=== PATIENT | male | born 1990 | race African-American/Black ===

== ENCOUNTER 2021-06-07 23:54 | Observation (INO) | payer MEDICARE, OTHER ==
--- NOTE | 2021-06-08 00:49 | ED ---
General Adult HPI - General Stated complaint: Fall, low blood sugar Time Seen by Provider: 06/08/21 00:44 - History of Present Illness Initial comments: 31 year-old male patient presents to the emergency department after experiencing a fall. States he believes he passed out. States that his legs felt very "wiggly", it felt like the right leg was asleep. States when he got up to walk he fell. Medical at the halfway saw him and states that blood sugar was low at 50 and BP was low. They did give snacks and juice. Repeat blood sugar was 86. Did start some new medications recently. Denies hitting his head. States he did hit his right knee. Denies history of issues with low blood sugar. Denies any fever or chills. Denies any recent illness. - Related Data Allergies Allergy/AdvReac Type Severity Reaction Status Date / Time No Known Allergies Allergy Verified 06/08/21 00:48 Review of Systems ROS Statement: Those systems with pertinent positive or pertinent negative responses have been documented in the HPI. ROS Other: All systems not noted in ROS Statement are negative. General Exam General appearance: alert, in no apparent distress, other (This is a well- developed, well-nourished adult male in no acute distress.) Eye exam: Present: normal appearance, PERRL, EOMI. Absent: scleral icterus, conjunctival injection, periorbital swelling ENT exam: Present: normal exam, normal oropharynx, mucous membranes moist Respiratory exam: Present: normal lung sounds bilaterally. Absent: respiratory distress, wheezes, rales, rhonchi, stridor Cardiovascular Exam: Present: regular rate, normal rhythm, normal heart sounds. Absent: systolic murmur, diastolic murmur, rubs, gallop, clicks GI/Abdominal exam: Present: soft, normal bowel sounds. Absent: distended, tenderness, guarding, rebound, rigid Extremities exam: Present: full ROM, normal capillary refill, other (No bony tenderness over the right knee. No swelling or ecchymosis. Skin is warm and dry. Cap refill less than 3 seconds. Pedal and posttibial pulses 2+.). Absent: normal inspection, tenderness, pedal edema, joint swelling, calf tenderness Neurological exam: Present: alert, oriented X3, CN II-XII intact Psychiatric exam: Present: normal affect, normal mood Skin exam: Present: warm, dry, intact, normal color. Absent: rash Course Vital Signs 06/08/21 00:44 Temperature 98.5 F Pulse Rate 60 Respiratory 18 Rate Blood Pressure 150/93 O2 Sat by Pulse 100 Oximetry EKG Findings - EKG Comments: EKG Findings:: AG obtained at 0100 shows sinus bradycardia with a ventricular rate of 55, TN interval 150, QRS duration 94, QTC 418, QTC 399. No evidence of ST elevation or depression. Medical Decision Making - Medical Decision Making 31 year-old male patient, currently incarcerated presented for syncopal episode. He was found to have low blood sugar at 50. He was given snack bag with crackers, peanut butter, and juice. He was also given oral glucose. Blood sugar on arrival was 86. Patient was asymptomatic at that time. Labs reviewed and were unremarkable. Plan was to discharge, patient repeat blood sugar 58. He was given juice and pudding. Patient was recently started on new medications including abilify and trileptal, both have rare adverse reaction of hypoglycemia, this is possibly a contributing factor as patient does not have diabetes. He will be admitted for observation for close monitoring of his blood glucose. Officers present at bedside are agreeable with this plan. My attending is Dr. Ghosh. - Lab Data Result diagrams: 06/08/21 01:32 06/08/21 01:32 Lab Results 06/08/21 06/08/21 06/08/21 Range/Units 00:49 01:32 01:32 WBC 4.3 (3.8-10.6) k/uL RBC 4.33 (4.30-5.90) m/uL Hgb 13.6 (13.0-17.5) gm/dL Hct 39.5 (39.0-53.0) % MCV 91.2 (80.0-100.0) fL MCH 31.3 (25.0-35.0) pg MCHC 34.3 (31.0-37.0) g/dL RDW 12.4 (11.5-15.5) % Plt Count 231 (150-450) k/uL MPV 8.1 Neutrophils % 48 % Lymphocytes % 39 % Monocytes % 6 % Eosinophils % 5 % Basophils % 1 % Neutrophils # 2.1 (1.3-7.7) k/uL Lymphocytes # 1.7 (1.0-4.8) k/uL Monocytes # 0.2 (0-1.0) k/uL Eosinophils # 0.2 (0-0.7) k/uL Basophils # 0.0 (0-0.2) k/uL Sodium 136 L (137-145) mmol/L Potassium 3.9 (3.5-5.1) mmol/L Chloride 97 L (98-107) mmol/L Carbon Dioxide 27 (22-30) mmol/L Anion Gap 12 mmol/L BUN 9 (9-20) mg/dL Creatinine 0.93 (0.66-1.25) mg/dL Est GFR (CKD-EPI)AfAm >90 (>60 ml/min/1.73 sqM) Est GFR (CKD-EPI)NonAf >90 (>60 ml/min/1.73 sqM) Glucose 88 (74-99) mg/dL POC Glucose (mg/dL) 89 (75-99) mg/dL POC Glu Ship Keeper ID Fredis Diana Calcium 9.7 (8.4-10.2) mg/dL Total Bilirubin 0.5 (0.2-1.3) mg/dL AST 43 (17-59) U/L ALT 45 (4-49) U/L Alkaline Phosphatase 55 (38-126) U/L Total Protein 7.6 (6.3-8.2) g/dL Albumin 4.4 (3.5-5.0) g/dL 06/08/21 Range/Units 02:37 WBC (3.8-10.6) k/uL RBC (4.30-5.90) m/uL Hgb (13.0-17.5) gm/dL Hct (39.0-53.0) % MCV (80.0-100.0) fL MCH (25.0-35.0) pg MCHC (31.0-37.0) g/dL RDW (11.5-15.5) % Plt Count (150-450) k/uL MPV Neutrophils % % Lymphocytes % % Monocytes % % Eosinophils % % Basophils % % Neutrophils # (1.3-7.7) k/uL Lymphocytes # (1.0-4.8) k/uL Monocytes # (0-1.0) k/uL Eosinophils # (0-0.7) k/uL Basophils # (0-0.2) k/uL Sodium (137-145) mmol/L Potassium (3.5-5.1) mmol/L Chloride (98-107) mmol/L Carbon Dioxide (22-30) mmol/L Anion Gap mmol/L BUN (9-20) mg/dL Creatinine (0.66-1.25) mg/dL Est GFR (CKD-EPI)AfAm (>60 ml/min/1.73 sqM) Est GFR (CKD-EPI)NonAf (>60 ml/min/1.73 sqM) Glucose (74-99) mg/dL POC Glucose (mg/dL) 58 L (75-99) mg/dL POC Glu Ship Keeper ID Nathan Quezada Calcium (8.4-10.2) mg/dL Total Bilirubin (0.2-1.3) mg/dL AST (17-59) U/L ALT (4-49) U/L Alkaline Phosphatase (38-126) U/L Total Protein (6.3-8.2) g/dL Albumin (3.5-5.0) g/dL Disposition Clinical Impression: Hypoglycemia, Fall Disposition: [facility] Condition: Serious Referrals: None,Stated [Primary Care Provider] - 1-2 days Decision to Admit Reason: Admit from EC Decision Date: 06/08/21 Decision Time: 02:51
[2021-06-08 00:50] LABS: Glucose,Whole Blood 89 mg/dL (75-99)
[2021-06-08 01:40] LABS: Basophils % (A) 1 %; Eosinophils # (A) 0.2 k/uL (0-0.7); Eosinophils % (A) 5 %; HCT 39.5 % (39.0-53.0); HGB 13.6 gm/dL (13.0-17.5); Lymphocytes # (A) 1.7 k/uL (1.0-4.8); Lymphocytes % (A) 39 %; MCH 31.3 pg (25.0-35.0); MCHC 34.3 g/dL (31.0-37.0); MCV 91.2 fL (80.0-100.0); Mean Platelet Volume 8.1; Monocytes # (A) 0.2 k/uL (0-1.0); Monocytes % (A) 6 %; Neutrophils # (A) 2.1 k/uL (1.3-7.7); Neutrophils % (A) 48 %; Platelet Count 231 k/uL (150-450); RBC 4.33 m/uL (4.30-5.90); RDW 12.4 % (11.5-15.5); WBC 4.3 k/uL (3.8-10.6)
[2021-06-08 02:10] LABS: ALT 45 U/L (4-49); AST 43 U/L (17-59); African American GFR (CKD) >90 (>60 ml/min/1.73 sqM); Albumin 4.4 g/dL (3.5-5.0); Alkaline Phosphatase 55 U/L (38-126); Blood Urea Nitrogen 9 mg/dL (9-20); Calcium 9.7 mg/dL (8.4-10.2); Carbon Dioxide 27 mmol/L (22-30); Glucose 88 mg/dL (74-99); Non-African American GFR(CKD) >90 (>60 ml/min/1.73 sqM); Total Bilirubin 0.5 mg/dL (0.2-1.3); Total Protein 7.6 g/dL (6.3-8.2)
[2021-06-08 02:27] LABS: Anion Gap 12 mmol/L; Chloride 97 mmol/L (98-107); Potassium 3.9 mmol/L (3.5-5.1); Sodium 136 mmol/L (137-145)
[2021-06-08 02:38] LABS: Glucose,Whole Blood 58 mg/dL (75-99)
[2021-06-08] MEDS ORDERED: NALOXONE 0.4 MG/ML 1 ML VIAL IV PRN (02:59)
[2021-06-08 03:05] LABS: Glucose,Whole Blood 76 mg/dL (75-99)
--- NOTE | 2021-06-08 03:54 | CT ---
EXAMINATION TYPE: CT brain wo con DATE OF EXAM: 06/08/2021 COMPARISON: None HISTORY: Syncope; diplopia CT DLP: 1127.4 mGycm Automated exposure control for dose reduction was used. Images obtained of the brain without contrast. Ventricles have normal size. There is no mass effect nor midline shift. There is no sign of intracran ial hemorrhage. Calvarium is intact. There is normal aeration of the mastoid sinuses. IMPRESSION: Negative unenhanced head CT scan.
--- NOTE | 2021-06-08 04:11 | P.HPIM ---
History of Present Illness H&P Date: 06/08/21 Patient is a 31-year-old male, currently incarcerated at [facility] who was brought in the emergency room after lightheadedness and fall. The history was supplemented by the witness, an officer from the [employer]. The patient reports that he was in his usual state of health and was performing some regular duties at the [employer] when he suddenly felt off balance. He denied experiencing dizziness but stated that he was unable to stand. He was able to stop himself from falling initially, was subsequently fell again when his legs gave out a minute later, at which time the officers were able to hold them up. They then helped the patient onto his bed, where the patient attempted to get up and then lost his balance and fell again. The patient reports not hitting his head. They checked his vitals and blood sugar which was 50, with BP being low although not documented. The gave the patient some juice and snacks and recheck the blood sugar which was then 86. They then decided to bring the patient to the emergency room. While in the emergency room, upon arrival the patient's blood g lucose was 89 with subsequent dropped to 58. Patient denied any prior history of hypoglycemia. The patient was reportedly started on new medications yesterday. The patient also reported having long-standing strabismus but states that he began experiencing diplopia for the first time after coming to the emergency room. He denied experiencing eye pain, head trauma or headache at the time of interview. Also denied weakness, numbness, tingling. Denied neck pain. Further denied recent change in apetite, weight loss, chest discomfort, shortness of breath or fever, chills, cough, nausea, vomiting, abdominal pain, diarrhea. CT brain in the emergency room was unremarkable. EKG revealed sinus bradycardia at [address]/T-wave changes noted as reviewed by me. Review of systems: Pertinent positives and negatives as discussed in HPI, a complete review of systems was performed and all other systems are negative. Physical examination: General: non toxic, no distress, appears at stated age, normal weight Derm: no unusual rashes/lesions no unusual ecchymoses, warm, dry Head: atraumatic, normocephalic, symmetric Eyes: Strabismus noted, EOMI, no lid lag, anicteric sclera, pupils equal round reactive to light ENT: Nose and ears atraumatic, no thrush, no pharyngeal erythema Neck: No thyromegaly, no cervical lymphadenopathy, trachea midline, supple Mouth: no lip lesion, mucus membranes moist Cardiovascular: S1S2 reg, no murmur, positive posterior tibial pulse bilateral, no edema, capillary refill less than 2 seconds Lungs: CTA bilateral, no rhonchi, no rales , no accessory muscle use Abdominal: soft, nontender to palpation, no guarding, no appreciable organomegaly, normal bowel sounds Ext: no gross muscle atrophy, muscle strength 5 out of 5 in all 4 extremities grossly, no contractures, Neuro: CN II-XI grossly intact, light touch intact all 4 extremities, finger to nose within normal limits, Psych: Alert, oriented, appropriate affect Assessment/plan Recurrent hypoglycemia, unclear etiology -Encourage oral intake -IV fluids -Q2h accuchecks -Check insulin levels New onset diplopia with hx of strabismus -Neurology consult -Neurochecks DVT prophylaxis -Heparin subq The patient is admitted with an anticipated less than 2 midnight stay for evaluation of hypoglycemia CODE STATUS: Full Code Discussed with: Patient Anticipated discharge date: in am Anticipated discharge place: [facility] Past Medical History Past Medical History: No Reported History History of Any Multi-Drug Resistant Organisms: None Reported Past Surgical History: No Surgical Hx Reported Smoking Status: Former smoker Medications and Allergies Allergies Allergy/AdvReac Type Severity Reaction Status Date / Time No Known Allergies Allergy Verified 06/08/21 00:48 Physical Exam Vitals: Vital Signs Temp Pulse Resp BP Pulse Ox 06/08/21 00:44 98.5 F 60 18 150/93 100 Intake and Output 06/07/21 06/07/21 06/08/21 14:59 22:59 06:59 Other: Weight 81.647 kg Results CBC & Chem 7: 06/08/21 01:32 06/08/21 01:32 Labs: Abnormal Lab Results - Last 24 Hours (Table) 06/08/21 06/08/21 Range/Units 01:32 02:37 Sodium 136 L (137-145) mmol/L Chloride 97 L (98-107) mmol/L POC Glucose (mg/dL) 58 L (75-99) mg/dL
[2021-06-08 04:14] LABS: Glucose,Whole Blood 100 mg/dL (75-99)
[2021-06-08 06:03] LABS: Appearance,Urine Clear (Clear); Bilirubin,Urine Negative (Negative); Blood,Urine Negative (Negative); Color,Urine Light Yellow; Glucose,Urine (UA) Negative (Negative); Ketones,Urine Negative (Negative); Leukocyte Esterase,Urine Negative (Negative); Nitrite,Urine Negative (Negative); PH, Urine 6.5 (5.0-8.0); Protein,Urine Negative (Negative); Specific Gravity,Urine 1.006 (1.001-1.035); Urobilinogen,Urine <2.0 mg/dL (<2.0)
[2021-06-08 06:12] LABS: Glucose,Whole Blood 88 mg/dL (75-99)
[2021-06-08 08:03] LABS: Glucose,Whole Blood 108 mg/dL (75-99)
[2021-06-08] MEDS: HEPARIN SODIUM,PORCINE/PF 5,000 UNIT/0.5 ML SYRINGE SQ SCH ×3 (08:24→23:37)
--- NOTE | 2021-06-08 09:59 | P.CNNES ---
History of Present Illness Consult date: 06/08/21 Requesting physician: Kwasi Vigil Reason for Consult: diplopia History of Present Illness: This is a 31-year-old gentleman with medical history of old left eye injury who has strabismus, schizoprenia, bipolar, anxiety who presented to the emergency department on 06/07/2021 because of feeling of light-headedness and fall. Some of the history is obtained from medical record that. 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 His legs gave out and the patient fell. It seems that the patient attempted to get up again and he was off balance and fell again. He denies hitting his head that. His sugar was 50 the patient was given some juice snacks and his sugar was 86. The primary team felt the patient has new onset diplopia with history of strabismus. Patient stated that he had diplopia over the right eye and it was [id number] and he said it lasted a few hours and resolved. He denies any associated weakness, numbness, difficulty getting his words out, any difficulty swallowing. He denies of any headaches, nausea or vomiting. He is unsure why he has hypoglycemia recently. He denies any history of diabetes, hypertension. He denies any history of stroke, TIA. He is on home medication of Trileptal 300 mg daily, hydralazine, Abilify Some of the work-up in the hospital consisted of: Initial vital signs his blood pressure 150/93, heart rate of 60, respiratory of 18, temperature of 98.5 Fahrenheit oral and pulse ox of 100% room air. CBC with differential is unremarkable Patient sugar in the hospital was as low as 58. Sodium is 136, creatinine 0.93, calcium is 9.7, AST of 43, ALT 45. Urinalysis is negative for urinary tract infection. Coronavirus PCR is not detected. CT of the head is reported as negative on has had computed tomography scan. I personally reviewed that CAT scan of the head and there is no acute or subacute ischemia and there is no parenchymal hemorrhage. Review of Systems Review of system: The 12 point system was reviewed and apparent positive and negative per HPI. Past Medical History Past Medical History: No Reported History History of Any Multi-Drug Resistant Organisms: None Reported Past Surgical History: No Surgical Hx Reported Additional Past Surgical History / Comment(s): eye surgery Smoking Status: Former smoker Medications and Allergies Home Medications Medication Instructions Recorded Confirmed Type ARIPiprazole [Abilify] 10 mg PO DAILY 06/08/21 06/08/21 History OXcarbazepine [Trileptal] 300 mg PO DAILY 06/08/21 06/08/21 History hydrALAZINE HCL 50 mg PO BID 06/08/21 06/08/21 History Allergies Allergy/AdvReac Type Severity Reaction Status Date / Time No Known Allergies Allergy Verified 06/08/21 07:42 Physical Examination - Vital Signs Vital Signs: Vital Signs Temp Pulse Pulse Resp BP BP Pulse Ox 06/08/21 07:00 98.0 F 56 L 18 150/88 99 06/08/21 04:30 98.7 F 74 16 146/78 97 06/08/21 00:44 98.5 F 60 18 150/93 100 Intake and Output 06/07/21 06/08/21 06/08/21 22:59 06:59 14:59 Intake Total 550 Output Total 450 Balance 100 Intake: Oral 550 Output: Urine 450 Other: Voiding Method Urinal Weight 81.647 kg GENERAL: The patient is lying in bed and is not in acute distress. CHEST: The heart rate is regular rate rhythm. No murmurs to auscultation. No carotid bruit bilaterally. LUNG: Clear to auscultation bilaterally no wheezing noted throughout. Not labored breathing. ABDOMEN/GI: Bowel sounds present in all 4 quadrants. No tenderness to palpation throughout. NEUROLOGICAL: Higher mental function: The patient is awake, alert, oriented to self, place and time. Patient is following commands. No aphasia and no neglect. Cranial nerves: The pupils are round, equal and reactive to light and accommodation. Visual coyle are full to confrontation throughout. Primary gaze is right eye is center while left eye is slight lateral deviated. Extraocular movement is intact but there is nystagmus looking to left eye (horizontal). Facial sensation is normal to touch throughout. The facial strength is normal throughout. Hearing is normal bilaterally to hand rub. Tongue is midline and moved [id number] without any difficulty. No dysarthria is noted. Shoulder shrug is normal bilaterally. Motor: Gait is deferred. The strength is 5 over 5 throughout. Normal tone and bulk. Cerebellum: Normal finger to nose heel to banks bilaterally. Sensation: Sensation is normal to touch throughout. Reflexes (right/left): 2+ throughout. Plantars are downgoing bilaterally. Results - Laboratory Findings CBC and BMP: 06/08/21 01:32 06/08/21 01:32 Abnormal Lab Findings: Abnormal Labs 06/08/21 06/08/21 06/08/21 01:32 02:37 04:12 Sodium 136 L Chloride 97 L POC Glucose (mg/dL) 58 L 100 H 06/08/21 08:01 Sodium Chloride POC Glucose (mg/dL) 108 H Assessment and Plan Assessment: Diplopia over the right likely due to a hypoglycemic event---resolved Hypoglycemia as low as in the 50s: Unsure cause History of old left eye injury with strabismus (he stated he had trauma possibly when he was 5 years old) Schizophrenia Bipolar Anxiety Plan: I'll hold off on any further imaging or workup since the patient symptoms res olved and seems due to hypoglycemia Recommend patient to follow-up with Ophthamologist as outpatient. Every 4 hours neuro checks We'll defer the rest of medical management to the primary team These avoid any further hypoglycemia event and we'll defer the management to the primary team. The plan is discussed with the patient and his nurse. Thank you for the consultation. Boaz Cadet MD Neuro-Hospitalist Time with Patient: Greater than 30
[2021-06-08 10:09] LABS: Glucose,Whole Blood 97 mg/dL (75-99)
[2021-06-08 11:46] VITALS: BMI 23.7
[2021-06-08 12:01] LABS: Glucose,Whole Blood 87 mg/dL (75-99)
[2021-06-08 12:42] LABS: Glucose,Whole Blood 92 mg/dL (75-99)
[2021-06-08 14:24] LABS: Glucose,Whole Blood 113 mg/dL (75-99)
[2021-06-08 17:17] LABS: Glucose,Whole Blood 92 mg/dL (75-99)
[2021-06-08 17:33] LABS: Glucose,Whole Blood 84 mg/dL (75-99)
[2021-06-08 17:44] LABS: Glucose,Whole Blood 102 mg/dL (75-99)
[2021-06-08 20:25] LABS: Glucose,Whole Blood 109 mg/dL (75-99)
[2021-06-08 21:15] VITALS: TEMP 98.3
[2021-06-08 22:22] LABS: Glucose,Whole Blood 101 mg/dL (75-99)
[2021-06-08 23:39] LABS: Glucose,Whole Blood 96 mg/dL (75-99)
[2021-06-09 01:39] LABS: Glucose,Whole Blood 102 mg/dL (75-99)
[2021-06-09 02:30] VITALS: BP 124/83; PULSE 58; RESP 18
[2021-06-09 04:50] LABS: Glucose,Whole Blood 94 mg/dL (75-99)
[2021-06-09 05:28] LABS: Glucose,Whole Blood 157 mg/dL (75-99)
[2021-06-09] MEDS: HEPARIN SODIUM,PORCINE/PF 5,000 UNIT/0.5 ML SYRINGE SQ SCH (07:59)
[2021-06-09 08:08] LABS: Glucose,Whole Blood 86 mg/dL (75-99)
[2021-06-09 10:13] LABS: Glucose,Whole Blood 86 mg/dL (75-99)
[2021-06-09 12:05] LABS: Glucose,Whole Blood 94 mg/dL (75-99)
--- NOTE | 2021-06-09 12:21 | P.PN ---
Subjective Progress Note Date: 06/09/21 The patient is seen at bedside and continues to be doing well from neurological perspective. Patient has not had any further hypoglycemic events. Objective - Vital Signs Vital signs: Vital Signs Temp 98.3 F 06/09/21 02:00 Pulse 58 L 06/09/21 08:00 Resp 18 06/09/21 02:00 BP 124/83 06/09/21 02:00 Pulse Ox 96 06/09/21 02:00 Intake & Output 06/08/21 06/09/21 06/09/21 18:59 06:59 18:59 Intake Total 236 120 Balance 236 120 Weight 81.647 kg Intake: Oral 236 120 Other: Voiding Method Urinal # Voids 3 1 # Bowel Movements 1 - Exam GENERAL: The patient is lying in bed and is not in acute distress. NEUROLOGICAL: Higher mental function: The patient is awake, alert, oriented to self, place and time. Patient is following commands. No aphasia and no neglect. Cranial nerves: The pupils are round, equal and reactive to light and accommodation. Visual coyle are full to confrontation throughout. Primary gaze is right eye is center while left eye is slight lateral deviated. Extraocular movement is intact but there is nystagmus looking to left eye (horizontal). Facial sensation is normal to touch throughout. The facial strength is normal throughout. Hearing is normal bilaterally to hand rub. Tongue is midline and moved [id number] without any difficulty. No dysarthria is noted. Shoulder shrug is normal bilaterally. Motor: Gait is deferred. The strength is 5 over 5 throughout. Normal tone and bulk. Cerebellum: Normal finger to nose heel to banks bilaterally. Sensation: Sensation is normal to touch throughout. Reflexes (right/left): 2+ throughout. Plantars are downgoing bilaterally. - Labs CBC & Chem 7: 06/08/21 01:32 06/08/21 01:32 Labs: Abnormal Lab Results - Last 24 Hours (Table) 06/08/21 06/08/21 06/08/21 Range/Units 14:19 17:42 20:24 POC Glucose (mg/dL) 113 H 102 H 109 H (75-99) mg/dL 06/08/21 06/09/21 06/09/21 Range/Units 22:21 01:37 05:28 POC Glucose (mg/dL) 101 H 102 H 157 H (75-99) mg/dL Assessment and Plan Assessment: Diplopia over the right likely due to a hypoglycemic event---resolved Hypoglycemia as low as in the 50s: Unsure cause History of old left eye injury with strabismus (he stated he had trauma possibly when he was 5 years old) Schizophrenia Bipolar Anxiety Plan: I'll hold off on any further imaging or workup since the patient symptoms resolved and seems due to hypoglycemia Recommend patient to follow-up with Ophthamologist as outpatient. Every 4 hours neuro checks We'll defer the rest of medical management to the primary team These avoid any further hypoglycemia event and we'll defer the management to the primary team. The plan is discussed with the patient and his nurse. Patient is clear from neurological perspective. No further wok-up needed. Boaz Cadet MD Neuro-Hospitalist Time with Patient: Less than 30
--- NOTE | 2021-06-09 12:25 | P.DS ---
Providers Date of admission: 06/08/21 03:00 Expected date of discharge: 06/09/21 Attending physician: Kwasi Vigil MD Consults: 06/08/21 04:10 Consult Physician Urgent Consulting Provider: Boaz Cadet Consult Reason/Comments: Diplopia Do you want consulting provider notified?: Yes Primary care physician: Stated None Hospital Course: Recurrent hypoglycemia -Encouraged oral intake. Pts glucose levels remained stable with good oral intake. I recommend that he always carries juice or sugary snack with him for times when he feels his sugar is low. New onset diplopia with hx of strabismus -Neurology consulted, but diplopia resolved with resolution of hypoglycemia. -Neurochecks Assessment: Gen: awake, alert HEENT: normocephalic, atraumatic, good hearing acuity, moist mucous membranes Resp: good air exchange, breathing comfortably with no accessory muscle use CVS: good distal perfusion x 4, GI: soft, NTTP, ND : no SPT, no CVAT, sanchez catheter not present MSK: Bilateral pitting edema, no clubbing Neuro: non-focal, moving all extremities Psych: cooperative, euthymic mood Patient Condition at Discharge: Good Plan - Discharge Summary Discharge Rx Participant: Yes New Discharge Prescriptions: Continue OXcarbazepine [Trileptal] 300 mg PO DAILY Discontinued hydrALAZINE HCL 50 mg PO BID ARIPiprazole [Abilify] 10 mg PO DAILY Discharge Medication List OXcarbazepine [Trileptal] 300 mg PO DAILY 06/08/21 [History] Follow up Appointment(s)/Referral(s): None,Stated [Primary Care Provider] - 1-2 days Activity/Diet/Wound Care/Special Instructions: Patient should always have access to sugary drink such as apple juice or orange juice, and/or sugary/sweet candy to take in situations where he feels his sugar is low. Discharge Disposition: DC/TRANSFER COURT/LAW
== END 2021-06-09 14:53 ==
LOC: EC 23:54 → 6NMEDSUR 06-08 03:00
PROVIDERS: ADMIT Internal Medicine; ATTEND Internal Medicine
DX: E16.2 Hypoglycemia, unspecified (principal); H53.2 Diplopia; H50.9 Unspecified strabismus; R00.1 Bradycardia, unspecified; R03.1 Nonspecific low blood-pressure reading; R55 Syncope and collapse; F41.9 Anxiety disorder, unspecified; F20.9 Schizophrenia, unspecified; F31.9 Bipolar disorder, unspecified; Z20.822 Contact with and (suspected) exposure to COVID-19; Z79.899 Other long term (current) drug therapy; Z87.891 Personal history of nicotine dependence; Z87.828 Personal history of other (healed) physical injury and trauma; W18.30XA Fall on same level, unspecified, initial encounter; Y92.149 Unspecified place in prison as the place of occurrence of the external cause
CPT/HCPCS: 96372 ×2; 99285; 36415; 93005; 80053; 85025; 81003; 83525; 87635; 70450; G0378 ×2; J1644 ×2